=== PATIENT | male | born 1995 | race African-American/Black ===

== ENCOUNTER 2022-01-02 21:51 | Emergency (ER) | payer SELFPAY | END 2022-01-02 23:30 | disposition home or self-care (01) | LOC: CSHERS 21:51 | DX: J06.9 Acute upper respiratory infection, unspecified (principal); F17.210 Nicotine dependence, cigarettes, uncomplicated; Z20.822 Contact with and (suspected) exposure to COVID-19 | CPT/HCPCS: 99283; U0003; U0005 ==